=== PATIENT | male | born 2000 | race Hispanic/Latino ===

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

== ENCOUNTER → 2022-06-22 | Outpatient (CLI) | payer OTHER ==
[~2022-06-22] MED LIST: AMLO5TAB4 PO; FLUT16H NASAL
[2022-06-22 12:42] LABS: BASOPHILS % (AUTO) 0.1 % (0.0-5.0); EOSINOPHILS % (AUTO) 0.1 % (0.0-8.0); HEMATOCRIT 51.2 % (42-54); LYMPHOCYTES % (AUTO) 5.9 % (21.0-51.0); MEAN CORPUSCULAR HEMOGLOBIN 29.3 pg (27.0-33.0); MEAN CORPUSCULAR HGB CONC 34.4 g/dL (32.0-36.0); MEAN CORPUSCULAR VOLUME 85.3 fL (80-100); MONOCYTES % (AUTO) 2.3 % (3.0-13.0); NEUTROPHILS % (AUTO) 90.8 % (40.0-77.0); PLATELET COUNT (AUTO) 399 K/uL (130-400); WHITE BLOOD COUNT (AUTO) 19.9 K/uL (4.8-10.8)
[2022-06-22 13:07] LABS: ALBUMIN 0.8 g/dL (3.5-5.0); CREATININE 1.1 mg/dL (0.5-1.5); PHOSPHORUS 3.7 mg/dL (2.5-4.9); POTASSIUM 3.9 mmol/L (3.5-5.1); TOTAL PROTEIN, SERUM 4.1 g/dL (6.0-8.3)
== END | disposition home or self-care (01) ==
LOC: LAB 12:02
PROVIDERS: ATTEND Internal Medicine Nephrology
DX: E78.5 Hyperlipidemia, unspecified (principal); N04.2 Nephrotic syndrome with diffuse membranous glomerulonephritis
CPT/HCPCS: 36415; 80053; 80061; 83970; 84100; 85025

== ENCOUNTER 2022-07-07 23:00 | Emergency (ER) | payer OTHER ==
[2022-07-07] MEDS ORDERED: MYCO500T5 PO (23:09)
[2022-07-07] MEDS ORDERED: PRED20TA3 PO (23:11)
[2022-07-07] MEDS ORDERED: PANT40TA54 PO (23:12)
[2022-07-07] MEDS ORDERED: VITAD50000 PO (23:15)
[2022-07-07] MEDS ORDERED: TORS20TA4 PO (23:16)
[2022-07-07] MEDS ORDERED: FERR-72 PO (23:17)
[2022-07-07] MEDS ORDERED: FOLI0.8T2 PO (23:18)
[2022-07-07 23:29] LABS: BASOPHILS % (AUTO) 0.2 % (0.0-5.0); EOSINOPHILS % (AUTO) 0.1 % (0.0-8.0); LYMPHOCYTES % (AUTO) 13.5 % (21.0-51.0); MEAN CORPUSCULAR HEMOGLOBIN 28.7 pg (27.0-33.0); MEAN CORPUSCULAR HGB CONC 36.7 g/dL (32.0-36.0); MEAN CORPUSCULAR VOLUME 78.2 fL (80-100); MONOCYTES % (AUTO) 7.9 % (3.0-13.0); NEUTROPHILS % (AUTO) 76.9 % (40.0-77.0); PLATELET COUNT (AUTO) 413 K/uL (130-400); RED BLOOD CELL COUNT(AUTO) 5.88 MIL/uL (4.50-6.20); RED CELL DISTRIBUTION WIDTH 11.8 % (11.0-15.5); WHITE BLOOD COUNT (AUTO) 16.5 K/uL (4.8-10.8)
[2022-07-07 23:48] LABS: ALANINE AMINOTRANSFERASE 65 U/L (12-78); ALBUMIN 2.4 g/dL (3.5-5.0); ASPARTATE AMINOTRANSFERASE 28 U/L (10-37); CARBON DIOXIDE 34 mmol/L (21-32); CREATINE KINASE, TOTAL 27 U/L (21-232); CREATININE 0.9 mg/dL (0.5-1.5); GLOMERULAR FILTR. RATE CALC 125 mL/min (>90); GLUCOSE,RANDOM 124 mg/dL (70-105); SODIUM SERUM 132 mmol/L (136-145); TOTAL PROTEIN, SERUM 5.5 g/dL (6.0-8.3); UREA NITROGEN, BLOOD 25 mg/dL (7-18)
[2022-07-07 23:53] LABS: CRP QUANTITATIVE < 2.00 mg/L (0.00-9.0)
[2022-07-07 23:55] LABS: CHLORIDE 90 mmol/L (101-111); POTASSIUM 2.2 mmol/L (3.5-5.1)
[2022-07-08] MEDS ORDERED: POTASSIUM BICARB/CIT AC 25 MEQ TABLET.EFF PO ONE
[2022-07-08] MEDS ORDERED: KCL IV SCH
[2022-07-08] MEDS ORDERED: NS IV SCH
[2022-07-08] MEDS ORDERED: MAGNESIUM 2GM PREMIX 50ML 25 ML IV SCH (00:30)
[2022-07-08] MEDS ORDERED: POTASSIUM CHLORIDE 20MEQ/100ML 100 ML IV ONE (00:39)
[2022-07-08] MEDS ORDERED: POTASSIUM CHLORIDE 20 MEQ/100 ML BAG IV SCH (01:00)
[2022-07-08] MEDS ORDERED: NYST5ORA7 PO (01:40)
[2022-07-08 03:59] VITALS: BP 105/61
== END 2022-07-08 04:49 | disposition home or self-care (01) ==
LOC: EDH 23:00
DX: E87.6 Hypokalemia (principal); E83.42 Hypomagnesemia; J45.909 Unspecified asthma, uncomplicated; Z90.49 Acquired absence of other specified parts of digestive tract; Z88.0 Allergy status to penicillin; Z79.899 Other long term (current) drug therapy; Z79.52 Long term (current) use of systemic steroids
CPT/HCPCS: 99284; 82550; 83735; 80053; 85025; 86140; 36415; 96365; 96366; 96368; J3475; J3480 ×2

== ENCOUNTER 2024-11-19 19:07 | Emergency (ER) | payer BC ==
[~2024-11-19] VITALS: Ht 165.1 cm; Wt 81.6 kg
[~2024-11-19 19:07] MED LIST changes: +CLIN-141 PO; +FERR-72 PO; +FOLI0.8T2 PO; +MYCO500T5 PO; +NYST100033 PO; +PANT20TA18 PO; +PANT40TA54 PO; +PRED20TA3 PO; +TORS20TA4 PO; +VITAD50000 PO
[2024-11-19] MEDS ORDERED: DOXY100C5 PO (19:35)
--- NOTE | 2024-11-19 19:37 | ERN ---
General Chief Complaint: Abscess Stated Complaint: ABSCESS Time Seen by MD: 19:13 History of Present Illness Initial Comments 24-year-old male with a history of lupus on immunosuppression comes in with a posterior neck abscess. He has had one in the past that was I indeed. Because of his immunosuppression he comes in concerned whenever he sees an infection. No fevers no chills no other symptoms. Timing/Duration: 24 hours Associated Symptoms: denies symptoms Allergies: Coded Allergies: Penicillins (Unverified Allergy, Unknown, 12/21/18) albuterol (Unverified Allergy, Unknown, 12/21/18) amoxicillin (Unverified Allergy, Unknown, 12/21/18) fluticasone (Unverified Allergy, Unknown, 12/21/18) Home Meds Active Scripts Pantoprazole Sodium (Pantoprazole Sodium) 20 Mg Tablet.dr, 20 MG PO DAILY, #30 T AB Prov:LIANNE WATERS MD 11/07/23 Clindamycin HCl (Clindamycin HCl) 300 Mg Capsule, 1 CAP PO QID for 10 Days, #40 CAP 0 Refills Prov:GAURI HUA NP 08/07/23 Nystatin (Nystatin) 100,000 Unit/1 Ml Oral.susp, 991709 UNIT PO QID for 10 Days, #100 ML Swish and swallow 4 times a day Prov:MARCIE GOLDSTEIN V [employer] 07/08/22 Amlodipine Besylate (Norvasc 5Mg Tab) 5 Mg Tablet, 5 MG PO DAILY, #30 TAB 0 Refills Prov:ZULEMA VILLEGAS AGPCNP 06/19/22 Reported Medications Folic Acid/Vitamin B Comp W-C (Nephro-Rosa Tablet) 0.8 Mg Tablet, 0.8 MG PO DAILY, TAB 07/07/22 Ferrous Sulfate (Ferrous Sulfate) 325 Mg Tablet, 325 MG PO DAILY, TAB 07/07/22 Torsemide (Torsemide) 20 Mg Tablet, 20 MG PO DAILY, TAB 07/07/22 Cholecalciferol (Vitamin D3) 50,000 Units Cap, 5000 UNITS PO DAILY, CAP 07/07/22 Pantoprazole Sodium (Pantoprazole Sodium) 40 Mg Tablet.dr, 40 MG PO DAILY, TAB 07/07/22 Prednisone (Prednisone) 20 Mg Tablet, 60 MG PO DAILY, TAB 07/07/22 Mycophenolate Mofetil (Mycophenolate Mofetil) 500 Mg Tablet, 500 MG PO BID, TAB 07/07/22 Fluticasone Propionate (Flonase Nasal [place]) 50 Mcg/[place], 2 SPRAY NASAL HS, SPRAY 06/07/22 Past Medical History Past Medical History: Asthma, Sinusitis Medical History Other: LUPUS, ESBL Past Surgical History: Appendectomy, Other Surgical History Other: TNA, ROS Dictation Review of systems is otherwise negative. No fevers no chills no shortness of breath no chest pain. Physical Exam General Appearance: (+) no apparent distress Orientation: (+) alert Head/Face Trauma: No Eye: bilateral eye normal inspection, bilateral eye PERRL, bilateral eye EOMI Neck Comment Posterior neck at approximately the level of T6-7 there is a very small area of swelling with minimal redness and minimal tenderness and minimal swelling. It is centered over the same area where his prior I and D shows a well-healed scar. MDM Given the patient's past medical history I agree with his need for antibiotics to treat this possible abscess possible cellulitis. I do not think the size of the lesion mandates an incision and drainage. Given the patient's allergic reactions to penicillin and amoxicillin I am going to give him doxycycline. He should return to the emergency room if this does not quell the infection in the next few days. ED Course Vital Signs Date Time Temp Pulse Resp B/P (MAP) Pulse Ox O2 Delivery O2 Flow Rate FiO2 11/19/24 19:08 97.9 97 18 118/71 98 Room Air DX & DISP Disposition: Discharge Departure Impression: Primary Impression: Neck infection Condition: Stable Scripts Doxycycline Hyclate (Doxycycline Hyclate) 100 Mg Capsule 1 CAP PO BID for 10 Days, #20 CAP 0 Refills Prov: DEANNA TELLEZ MD 11/19/24 Additional Instructions: Please return to the ER if the infection do0es not improve in the next few days or if you get increased swelling, redness, fevers. Referrals: SELF,REFERRAL (PCP) DEANNA TELLEZ MD Nov 19, 2024 19:37
[2024-11-19 19:43] VITALS: BP 120/70; PULSE 98; RESP 16; TEMP 98.1; O2SAT 98
== END 2024-11-19 19:49 | disposition home or self-care (01) ==
LOC: EDH 19:07
DX: L02.11 Cutaneous abscess of neck (principal); J45.909 Unspecified asthma, uncomplicated; Z79.52 Long term (current) use of systemic steroids; Z79.624 Long term (current) use of inhibitors of nucleotide synthesis; Z79.899 Other long term (current) drug therapy; Z88.0 Allergy status to penicillin; Z90.49 Acquired absence of other specified parts of digestive tract
CPT/HCPCS: 99283